=== PATIENT | male | born 1945 | race African-American/Black ===

== ENCOUNTER 2017-07-05 21:29 | Emergency (ER) | payer OTHER ==
[~2017-07-05] VITALS: Ht 175.3 cm; Wt 79.1 kg
[2017-07-05 21:48] LABS: HEMATOCRIT 41.6 % (38.0-50.0); HEMOGLOBIN 13.9 G/DL (12.5-16.6); MCH 27.9 PG (29.0-34.0); MCHC 33.4 G/DL (30.0-36.0); MCV 83.5 FL (86-99); PLATELET COUNT 178 K/uL (156-360); RBC DIS.WIDTH-CV 12.9 % (11.8-14.6); RBC DIS.WIDTH-SD 39.4 % (39-53); RED BLOOD COUNT 4.98 M/uL (4.00-5.50); WHITE BLOOD COUNT 5.9 K/uL (4.1-10.2)
[2017-07-05 21:59] LABS: ALBUMIN 3.3 g/dL (3.2-4.8)
[2017-07-05 22:00] LABS: CHLORIDE 104 mEq/L (99-109); POTASSIUM 4.3 mEq/L (3.7-5.4); SODIUM 140 mEq/L (136-147)
[2017-07-05 22:02] LABS: GLUCOSE 88 mg/dL (70-99)
[2017-07-05 22:04] LABS: TOTAL BILIRUBIN 0.4 mg/dL (0.0-1.0)
[2017-07-05 22:05] LABS: ALKALINE PHOSPHATASE 95 IU/L (3-129)
[2017-07-05 22:06] LABS: CREATININE 1.1 mg/dL (0.6-1.3); GFR ESTIMATE (CALCULATED) > 59 mL/min/ (58.99-99999)
[2017-07-05 22:07] LABS: AST (GOT) 37 IU/L (2-34); UREA NITROGEN (BUN) 10 mg/dL (9-23)
[2017-07-05 22:08] LABS: ALT (GPT) 32 IU/L (3-49)
[2017-07-05 22:14] LABS: TROP-I INTERPRETATION NEGATIVE; TROPONIN-I < 0.01 ng/mL (0.0-0.30)
[2017-07-06 02:38] VITALS: BP 131/68
== END 2017-07-06 02:26 | disposition short-term general hospital (02) ==
LOC: EME 21:29
PROVIDERS: Emergency Medicine
DX: R07.9 Chest pain, unspecified (principal); E11.9 Type 2 diabetes mellitus without complications; I10 Essential (primary) hypertension; H54.8 Legal blindness, as defined in USA; Z87.891 Personal history of nicotine dependence
CPT/HCPCS: 71046; 80053; 82948; 84484; 85027; 93005; 99281; 99285